=== PATIENT | male | born 1930 | race Caucasian/White ===

== ENCOUNTER 2016-08-10 10:06 | Emergency (ER) | payer MEDICARE, OTHER ==
--- NOTE | 2016-08-10 10:34 | EDPRACDOC ---
- General Stated Complaint: FALL Time Seen by Provider: 08/10/16 10:30 - History of Present Illness Onset: [employer] HPI: PT PRESENTS TODAY VIA EMS FROM [facility] FOR FALL. PT WAS IN CHAIR AND FELL ASLEEP, STRIKING HIS HEAD ON THE FLOOR. PT WOKE UP IMMEDIATELY. PT NOT ON ANTICOAGULANTS. PT HAS NO COMPLAINTS. CURRENTLY A/O X 4 WITH SKIN P/W/D. Pain Severity: Reports: None Injuries/Pain Location: Reports: head Reason for Fall: Reports: other Loss of Consciousness: no loss of consciousness Associated Symptoms (Fall): Reports: denies symptoms Allergies/Adverse Reactions: Allergies acetaminophen [From Percocet] Allergy (Verified 08/10/16 10:25) Agitation bee pollen Allergy (Verified 08/10/16 10:25) Edema-Localized oxycodone [From Percocet] Allergy (Verified 08/10/16 10:25) Agitation Penicillins Allergy (Verified 08/10/16 10:25) Unknown ED Past Medical History - History Reviewed Yes Nurses notes reviewed and agree except as marked EDM Review of Systems - Review of Systems ROS Negative Except as Marked: Yes All systems reviewed and were negative except as marked Constitutional: No Symptoms Reported Respiratory: No Symptoms Reported Cardiovascular: No Symptoms Reported Gastrointestinal: No Symptoms Reported Neurological: No Symptoms Reported Musculoskeletal: No Symptoms Reported Integumentary: Wound - Physical Exam Constitutional: Alert (Awake), No apparent distress Oriented to: Time, Person, Place Last recorded Vital Signs: Oxygen Pulse Oxygen Saturation O2 Device Oxygen Flow Rate Fraction of Inspired Oxygen ( FIO2) - HEENT Head: Abrasion Eye Exam: Normal Oropharynx: Normal Tympanic Membrane: Normal ENT EAC: Normal Nose: No Symptoms Reported Neck: Normal, Denies Pain, Midline - Respiratory/Cardiovascular Respiratory: Normal - CTA Cardiovascular: Normal - GI Palpation: Normal Tenderness: Non tender - Musculoskeletal Back: Normal Extremities: Normal - Integumentary Skin: Normal Lymphatics: Normal - Neurologic Cerebellar: Normal Mood Description: Normal Thought: Coherent Perception: Normal ED Injury/Fall Exam - Physical Exam Head Injury: other (ABRASION) Extremity Exam: no evidence of injury Skin: Normal - [place] Coma Score Best Eye Response ([place]): (4) open spontaneously Best Verbal Response ([place]): (5) oriented Best Motor Response ([place]): (6) obeys commands [place] Total: 15 - Additional Information FAMILY PRESENT AND AGREES THAT NOT PERFORMING A CT SCAN AT THIS TIME IS REASONABLE. Decision Time to Discharge: 10:33 - Departure Disposition: Home Condition: Good Final Diagnosis: Abrasion Instructions: RICE Therapy (ED) Education/Counseling Given To: Patient, Family Member Education/Counseling Given Regarding: Diagnosis, Treatment, Follow Up Referrals: Shala Vazquez MD [Primary Care Provider] - One Week Additional Instructions: RETURN TO ED FOR ANY WORSE/CONCERNING SYMPTOMS.
[2016-08-10 10:45] VITALS: BP 111/53; PULSE 69; TEMP 97.4; BMI 32.3
== END 2016-08-10 11:00 | disposition short-term general hospital (02) ==
LOC: ED 10:06
DX: S00.91XA Abrasion of unspecified part of head, initial encounter (principal); W07.XXXA Fall from chair, initial encounter; Y93.84 Activity, sleeping; Y92.129 Unspecified place in nursing home as the place of occurrence of the external cause
CPT/HCPCS: 99283